=== PATIENT | female | born 1995 | race Caucasian/White ===

== ENCOUNTER 2018-03-25 10:11 | Emergency (ER) | payer BC, OTHER, SELFPAY ==
--- NOTE | 2018-03-25 11:25 | ED_ITS ---
HPI - Abdominal Pain General Chief Complaint: Abdominal Pain Stated Complaint: RECTAL BLEEDING/VISION ISSUES Time Seen by Provider: 03/25/18 11:25 Source: patient Mode of arrival: ambulatory Limitations: no limitations History of Present Illness HPI narrative: 22-year-old female here for 2 complaints. Patient states that over the past week she has had 2 episodes of bright red blood per rectum. She states that it was nonpainful. She has no abdominal pain. No fevers. States she is not constipated and not having any diarrhea. No recent travel. No recent antibiotics. States the last episode was 4 days ago. No prior abdominal surgeries. No urinary symptoms no vaginal bleeding. She also was here for a 2nd complaint. She states that for the past 3 days she has felt ? head pressure ?she states that she occasionally has changes in her vision which she has a difficulty describing. She states that is not a double vision or blurry vision. Unknown as that how long the symptoms lasted that come on but does not a very long time. Not associated with any other symptoms to include chest pain palpitations fevers neck pain ringing in her years. She does not wear glasses. She does state that it started when she was studying and having to focus. She does have a history of migraines for which she occasionally takes Tylenol No. 3 and ibuprofen for. She states this does not feel like 1 of her prior migraines Related Data Previous Rx's Medication Instructions Recorded norethindrone-e.estradiol-iron 1 tab PO QDAY #3 pac 05/27/17 [Loestrin Fe 06/25 (28-Day)] ondansetron [Zofran ODT] 4 mg SUBLINGUAL Q6HP PRN #10 odt 09/04/17 vancomycin 125 mg PO QID #40 cap 09/06/17 Allergies Allergy/AdvReac Type Severity Reaction Status Date / Time latex [LATEX] Allergy Mild local rash Unverified 09/14/17 11:47 minocycline [MINOCYCLINE] Allergy Mild rash Unverified 09/14/17 11:47 Review of Systems Constitutional Denies fever(s) Eyes Denies blurry vision, Reports change in vision, Denies diplopia, Denies irritation, Denies photophobia and Denies spots in vision ENT Ears, Nose, Mouth, and Throat: Denies dental pain, Denies dysphagia, Denies vertigo, Denies nasal trauma, Denies nose pain, Denies sore throat, Denies throat swelling and Denies tongue swelling Cardiovascular Denies chest pain, Denies palpitations and Denies dyspnea Respiratory Denies cough and Denies dyspnea Gastrointestinal Gastrointestinal: Denies constipation, Denies dysphagia, Denies diarrhea, Denies nausea and Denies vomiting Comments: Bright red blood per rectum Genitourinary Denies dysuria Musculoskeletal Denies abnormal gait and Denies myalgias Neurologic Denies abnormal gait and Denies vertigo Endocrine Denies palpitations Hematologic/Lymphatic Denies easy bleeding and Denies easy bruising Allergic/Immunologic Denies throat swelling and Denies tongue swelling [facility] Medical History Healthy adult (Acute) Surgical History History of tonsillectomy (02/26/13) Status post discectomy (08/26/15) Family History Brother Age: 22 Mental health problem Depression Grandmother History of kidney cancer Mother Age: 52 Mental health problem Depression Exam Initial Vital Signs Initial Vital Signs: Vital Signs Temperature 98.2 F 03/25/18 11:27 Pulse Rate 96 H 03/25/18 11:27 Respiratory Rate 18 03/25/18 11:27 Blood Pressure 146/84 H 03/25/18 11:27 Pulse Oximetry 100 03/25/18 11:27 Const General: cooperative, healthy appearing, comfortable, well developed, well groomed and No acute distress Orientation: alert, awake and oriented x3 HENNJ Head: normal to inspection and normocephalic Ears: TM's normal bilaterally and other Eyes Eyelids: eyelids normal Conjunctivae: conjunctivae normal Sclera: sclerae normal Pupils: PERRL EOM: EOM intact bilaterally and No nystagmus Resp Effort & Inspection: normal respiratory effort Auscultation: clear to auscultation bilaterally Cardio Rate: regular rate Rhythm: regular rhythm GI Inspection: non-distended Palpation: soft, No firm and No tender Rectal Exam: No heme positive stool, heme negative stool, No hemorrhoids and No lesions Skin Lesions: no lesions Rashes: no rashes Neuro General: alert, awake, oriented x3 and CN's II-XI intact bilaterally Cranial Nerves: CN's II-XI intact bilaterally, PERRL and No nystagmus Cognition: normal cognition Speech: speech normal Gait: normal gait Motor: muscle tone normal throughout Sensory Exam: no sensory deficits noted Extrem General: normal to inspection and capillary refill normal Psych Appearance: grossly normal and well kempt Course Vital Signs - 8 hr 03/25/18 11:27 Temperature 98.2 F Pulse Rate 96 H Respiratory Rate 18 Blood Pressure 146/84 H Pulse Oximetry 100 MDM - Abdominal Pain Lab Data Point of care testing: Point of Care Testing Test Results Negative Urine Dip Bedside Urine Glucose Negative Bedside Urine Bilirubin - Negative Bedside Urine Ketone - Negative Urine Specific [place] 1.015 Bedside Urine Occult Blood - Negative Bedside Urine pH 6.0 Bedside Urine Protein - Negative Bedside Urine Urobilinogen - Negative Bedside Urine Nitrite - Negative Bedside Urine Leukocytes - Negative Esterase MDM Narrative Medical decision making narrative: Patient's last episode of bright red blood was 4 days ago. She has no hemorrhoids on exam today and was heme-negative stool. I had a discussion with her regarding the symptoms. Informed her that if her symptoms continue then she needs to talk with her primary doctor about further evaluation and treatment. She is not tachycardic. No indication for an emergent colonoscopy. Patient has a normal neurologic exam here in the emergency department. Visual acuity is unremarkable. Low suspicion for TIA, CVA. Ocular exam is unremarkable as well. Will send home with easy treatments to treat any possible congestion. She does have a history of migraines that this could potentially be an atypical migraine. Patient was instructed to her symptoms do not improve she needs to contact her primary care doctor for follow- up. She was given return precautions. She expressed understanding and agreement with plan. Discharge Plan Departure Patient Disposition: Home Clinical Impression: BRBPR (bright red blood per rectum), Headache Prescriptions: No Action norethindrone-e.estradiol-iron [Loestrin Fe 06/25 (28-Day)] 1 MG/20 MCG tablet 1 tab PO QDAY Qty: 3 RF: 4 ondansetron [Zofran ODT] 4 MG tablet,disintegrating 4 mg Sublingual Q6HP PRNQty: 10 RF: 0 vancomycin 125 MG capsule 125 mg PO QID Qty: 40 RF: 0
[2018-03-25 11:27] VITALS: BP 146/84; PULSE 96; RESP 18; TEMP 36.8; O2SAT 100; BMI 20.1
[2018-03-25 13:05] VITALS: BP 111/75; PULSE 103; RESP 18; O2SAT 99
== END 2018-03-25 13:06 | disposition home or self-care (01) ==
PROVIDERS: Emergency Provider Emergency Medicine; Family Provider Family Medicine; PCP Family Medicine
DX: K62.5 Hemorrhage of anus and rectum (principal); R51 Headache
CPT/HCPCS: 81003; 81025; 99283